=== PATIENT | female | born 1965 | race Caucasian/White ===

== ENCOUNTER 2019-02-06 19:21 | Emergency (ER) | payer SELFPAY ==
[~2019-02-06] VITALS: Ht 152.4 cm; Wt 64.0 kg
[2019-02-06 19:25] VITALS: BP 171/93
== END 2019-02-06 20:24 | disposition home or self-care (01) ==
LOC: ED 20:18
DX: R05 Cough (principal)
CPT/HCPCS: 71046; 99283